=== PATIENT | male | born 1980 | race American Indian/Alaskan Native ===

== ENCOUNTER 2019-08-09 09:02 | Emergency (ER) | payer SELFPAY ==
[2019-08-09 09:12] VITALS: BP 173/104
--- NOTE | 2019-08-09 10:47 | Emergency Department Report ---
Chief Complaint: Upper Respiratory Infection Stated Complaint: BODYACHE/ABD PAIN Time Seen by Provider: 08/09/19 10:12 - HPI History of Present Illness: 39-year-old -[place] male patient history of hypertension presents with complaints of generalized body aches and cough 3 days and intermittent gastric pain 1 year. He denies any nausea/vomiting/diarrhea, hemoptysis, fever, shortness of breath, or chest pain. Patient also denies smoking or history of asthma. - ROS Review of Systems: Constitutional: denies: fever, admits to: chills and malaise ENT: denies: ear pain admits to: throat pain Respiratory: denies: shortness of breath, wheezing Cardiovascular: denies: chest pain, palpitations Endocrine: denies: excessive sweating Gastrointestinal: abdominal pain denies: nausea, vomiting, constipation, hematemesis, melena, hematochezia Genitourinary: denies: dysuria, frequency Musculoskeletal: denies: back pain Skin: denies: rash, lesions Psychiatric: denies: anxiety, depression Hematological/Lymphatic: denies: easy bleeding, easy bruising - Exam Vital Signs: Vital Signs 08/09/19 09:10 Temperature 98.4 F Pulse Rate 78 Respiratory 20 Rate Blood Pressure 173/104 O2 Sat by Pulse 97 Oximetry Physical Exam: - General Limitations: No Limitations General appearance: alert, in no apparent distress - Head Head exam: Present: atraumatic, normocephalic - Eye Eye exam: Present: normal appearance. Absent: scleral icterus - ENT ENT exam: Present: mucous membranes moist, oropharynx is normal - Neck Neck exam: Present: normal inspection - Respiratory Respiratory exam: Present: normal lung sounds bilaterally. Absent: respiratory distress - Cardiovascular Cardiovascular Exam: Present: regular rate, normal rhythm. Absent: systolic murmur, diastolic murmur, rubs, gallop - GI/Abdominal GI/Abdominal exam: Present: soft, normal bowel sounds. Absent: distended, tenderness, guarding, rebound, rigid, hyperactive bowel sounds, mass, bruit, pulsatile mass, hernia - Extremities Exam Extremities exam: Present: normal inspection. Absent: pedal edema - Back Exam Back exam: Present: normal inspection - Neurological Exam Neurological exam: Present: alert, oriented X3 - Psychiatric Psychiatric exam: Present: normal affect, normal mood - Skin Skin exam: Present: warm, dry, intact, normal color. Absent: rash MSE screening note: Focused history and physical exam performed. Due to findings the following was ordered: Patient here with complaints of upper respiratory symptoms for the past 3 days and chronic intermittent epigastric pain 1 year. He has not tried any [id number] medications for his symptoms. He is afebrile and nontachycardic. Blood pressure noted to be elevated-patient states he has been out of his amlodipine 10 mg for the past 2 days. He denies any chest pain, shortness of breath. No swelling of extremities noted on exam. No tenderness to palpation of abdomen on exam. Lungs are clear to auscultation bilaterally. Patient is nontoxic appearing. Pt's symptoms are non emergent and pt is able to follow up outpatient with a primary care provider, gastroenterology, or urgent care. Discussed this with pt who agrees with disposition. Advised pt to try mucinex, delsym, and nexium over the counter for his current symptoms. Discussed strict return precautions in detail with pt who states understanding. ED Disposition for MSE Clinical Impression: Viral URI with cough, Uncontrolled hypertension GERD (gastroesophageal reflux disease) Qualifiers: Esophagitis presence: esophagitis presence not specified Qualified Code(s): K21.9 - Gastro-esophageal reflux disease without esophagitis Disposition: Z MED SCREENING EXAM-LEFT Is pt being admited?: No Condition: Stable Instructions: Gastroesophageal Reflux Disease (ED), Viral Syndrome (ED), Hypertension (ED) Additional Instructions: Please try over the counter Nexium once daily for your heartburn. For your cold symptoms, try guaifenesin and delsym for your cough. PLease make sure you drink 2 glasses of water when you take these medications to help thin out the mucous. Please follow up with the provided primary care provider for management of your blood pressure and [facility] for further evaluation of your epigastric pain Referrals: MELA CORRIGAN MD [Staff Physician] - 3-5 Days [facility] [Provider Group] - 3-5 Days Forms: Work/School Release Form(ED)
== END 2019-08-09 11:03 | disposition left against medical advice (07) ==
LOC: ED 09:02
DX: J06.9 Acute upper respiratory infection, unspecified (principal); I10 Essential (primary) hypertension; K21.9 Gastro-esophageal reflux disease without esophagitis
CPT/HCPCS: 99282